=== PATIENT | female | born 1990 | race American Indian/Alaskan Native ===

== ENCOUNTER 2017-01-24 20:22 | Emergency (ER) | payer SELFPAY ==
[2017-01-24] MEDS ORDERED: TYLENOL ONE (20:37)
[2017-01-24] MEDS ORDERED: TYLENOL PO ONE (20:45)
[2017-01-24 20:52] VITALS: BP 141/84
== END 2017-01-25 04:00 | disposition left against medical advice (07) ==
LOC: ED 20:22
DX: R21 Rash and other nonspecific skin eruption (principal); L29.9 Pruritus, unspecified; Z53.21 Procedure and treatment not carried out due to patient leaving prior to being seen by health care provider
CPT/HCPCS: 81025

== ENCOUNTER 2017-09-18 03:08 | Emergency (ER) | payer SELFPAY ==
[2017-09-18 03:25] VITALS: BP 127/85
[2017-09-18 05:36] LABS: Basophils % (Auto) 0.3 % (0.0-1.8); Eosinophils % (Auto) 0.9 % (0.0-4.3); Hematocrit 38.9 % (30.3-42.9); Hemoglobin 12.9 gm/dl (10.1-14.3); Lymphocytes % (Auto) 19.4 % (13.4-35.0); Mean Corpuscular HGB Conc 33 % (30-34); Mean Corpuscular Hemoglobin 29 pg (28-32); Mean Corpuscular Volume 87 fl (79-97); Monocytes # (Auto) 0.5 K/mm3 (0.0-0.8); Monocytes % (Auto) 9.6 % (0.0-7.3); Platelet Count 184 K/mm3 (140-440); Red Blood Count 4.47 M/mm3 (3.65-5.03); Red Cell Distribution Width 15.3 % (13.2-15.2)
[2017-09-18 05:59] LABS: BUN/Creatinine Ratio 18; Blood Urea Nitrogen 11 mg/dL (7-17); Calcium 9.1 mg/dL (8.4-10.2); Hemolysis Index 218
== END 2017-09-18 04:10 | disposition left against medical advice (07) ==
LOC: ED 03:08
DX: R07.9 Chest pain, unspecified (principal); Z53.21 Procedure and treatment not carried out due to patient leaving prior to being seen by health care provider
CPT/HCPCS: 36415; 80048; 84484; 84703; 85025; 93005; 93010

== ENCOUNTER 2020-04-30 05:11 | Emergency (ER) | payer OTHER ==
--- NOTE | 2020-04-30 05:48 | XRay Report ---
CHEST 1 VIEW INDICATION: Chest Pain. COMPARISON: None. FINDINGS: Support devices: None. Heart: Borderline heart size. Lungs/Pleura: Diminished lung volumes. No localized infiltrate. Additional findings: None. IMPRESSION: 1. Borderline heart size. 2. Diminished lung volumes. Signer Name: Maulik Daniel MD Signed: 04/30/2020 5:44 AM Workstation Name: [id number]
[2020-04-30 08:59] VITALS: BP 134/82
[2020-04-30] MEDS ORDERED: KETOROLAC 30 MG/1 ML INJ IM ONE (09:02)
[2020-04-30] MEDS ORDERED: HYDROcodone/ACETAMINOPHEN 7.5-325MG TAB PO ONE (09:02)
--- NOTE | 2020-04-30 09:06 | Emergency Department Report ---
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 Patient reports she took Aleve about 3 AM. Patient does not know what her trigger was at this time. 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 -: This morning Location: chest Severity scale (0 -10): 9 Quality: aching, sharp Consistency: constant Improves with: none Worsens with: movement, other (deep breath) Associated Symptoms: nausea/vomiting (no vomiting) Treatments Prior to Arrival: none - Related Data Previous Rx's Medication Instructions Recorded Last Taken Type HYDROcodone/APAP 5-325 [Kaplan 1 each PO Q6HR PRN #20 tablet 03/01/16 Unknown Rx 5/325] Ibuprofen [Motrin] 800 mg PO Q8HR PRN #60 tablet 03/01/[address] [Voltaren Dr] 75 mg PO TID #30 tablet 04/30/20 Unknown Rx traMADoL [Ultram 50 MG tab] 50 mg PO Q6HR PRN #15 tablet 04/30/20 Unknown Rx Allergies Allergy/AdvReac Type Severity Reaction Status Date / Time Sulfa (Sulfonamide Allergy Hives Verified 12/10/13 08:25 Antibiotics) ED Review of Systems ROS: Stated complaint: JUAN Other details as noted in HPI Comment: All other systems reviewed and negative ED Past Medical Hx - Past Medical History Previous Medical History?: Yes Hx Hypertension: No Hx Heart Attack/AMI: No Hx Congestive Heart Failure: No Hx Diabetes: No Hx Deep Vein Thrombosis: No Hx Renal Disease: No Hx Sickle Cell Disease: No Hx Seizures: No Hx Asthma: No Hx COPD: No Hx HIV: No Additional medical history: cameron - Surgical History Past Surgical History?: No - Social History Smoking Status: Former Smoker Substance Use Type: None - Medications Home Medications: Home Medications Medication Instructions Recorded Confirmed Last Taken Type HYDROcodone/APAP 5-325 [Kaplan 1 each PO Q6HR PRN #20 tablet 03/01/16 Unknown Rx 5/325] Ibuprofen [Motrin] 800 mg PO Q8HR PRN #60 tablet 03/01/[address] [Voltaren Dr] 75 mg PO TID #30 tablet 04/30/20 Unknown Rx traMADoL [Ultram 50 MG tab] 50 mg PO Q6HR PRN #15 tablet 04/30/20 Unknown Rx ED Physical Exam - General Limitations: No Limitations General appearance: alert, in distress - Head Head exam: Present: atraumatic, normocephalic - Eye Eye exam: Present: normal appearance - ENT ENT exam: Present: mucous membranes moist - Neck Neck exam: Present: normal inspection, full ROM - Respiratory Respiratory exam: Present: normal lung sounds bilaterally, chest wall tendernes s. Absent: respiratory distress - Cardiovascular Cardiovascular Exam: Present: regular rate, normal rhythm. Absent: systolic murmur, diastolic murmur, rubs, gallop - GI/Abdominal GI/Abdominal exam: Present: soft, normal bowel sounds - Extremities Exam Extremities exam: Present: normal inspection, full ROM - Back Exam Back exam: Present: normal inspection, full ROM - Neurological Exam Neurological exam: Present: alert, oriented X3 - Psychiatric Psychiatric exam: Present: normal affect, normal mood - Skin Skin exam: Present: warm, dry, intact, normal color. 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 Patient reports she took Aleve about 3 AM. Patient does not know what her trigger was at this time. 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 Patient is given a Toradol injection of 60 mg IM and Kaplan 5 mg p.o. Patient be discharged home 1below for next and tramadol and a referral to orthopedics. Critical care attestation.: If time is entered above; I have spent that time in minutes in the direct care of this critically ill patient, excluding procedure time. ED Disposition Clinical Impression: Tietze syndrome, Xiphoid syndrome Disposition: TO HOME OR SELFCARE Is pt being admited?: No Does the pt Need Aspirin: No Condition: Stable Instructions: Chest Pain (ED) Additional Instructions: Please take your pain medication as needed. Do not operate heavy machinery while taking tramadol. Important for you to follow-up with your primary care provider as well as placed a orthopedic provider in your discharge summary. Be sure to drink plenty of fluids while taking the pain medication. It is important for you to rest not lift heavy objects. Prescriptions: traMADoL [Ultram 50 MG tab] 50 mg PO Q6HR PRN #15 tablet PRN Reason: Pain Diclofenac Dr [Voltaren Dr] 75 mg PO TID #30 tablet Referrals: WAQAS LOBO MD [Staff Physician] - 3-5 Days PRIMARY CARE, [Primary Care Provider] - 3-5 Days LISANDRA SALMERON JR, MD [Staff Physician] - 3-5 Days DELMY RUELAS MD [Staff Physician] - 3-5 Days Forms: Work/School Release Form(ED)
== END 2020-04-30 10:30 | disposition home or self-care (01) ==
LOC: ED 05:11
DX: M94.0 Chondrocostal junction syndrome [Tietze] (principal); Z88.6 Allergy status to analgesic agent
CPT/HCPCS: 71045; 93005; 96372; 99283; J1885